=== PATIENT | female | born 1985 | race Caucasian/White ===

== ENCOUNTER 2025-05-21 23:17 | Emergency (ER) | payer BC ==
[~2025-05-21] VITALS: Ht 157.5 cm; Wt 59.0 kg
[2025-05-21 23:20] VITALS: BP 102/55
[2025-05-22] MEDS ORDERED: VALA100026 PO (00:12)
[2025-05-22] MEDS ORDERED: HYDR-4209 PO (00:12)
[2025-05-22] MEDS ORDERED: GABAPENTIN 300 MG CAPSULE ONE (00:12)
[2025-05-22] MEDS ORDERED: GABA300C PO (00:12)
[2025-05-22] MEDS ORDERED: IBUPROFEN 600 MG TABLET ONE (00:13)
[2025-05-22] MEDS: IBUPROFEN 600 MG TABLET PO ONE (00:16)
[2025-05-22] MEDS: GABAPENTIN 300 MG CAPSULE PO ONE (00:16)
[2025-05-22] MEDS: HYDROCODONE/APAP 5-325MG TABLET PO ONE (00:17)
[2025-05-22 00:39] VITALS: BP 110/62; TEMP 98; O2SAT 99
== END 2025-05-22 00:39 | disposition home or self-care (01) ==
LOC: ER 23:29
DX: B02.9 Zoster without complications (principal); M54.6 Pain in thoracic spine; Z79.624 Long term (current) use of inhibitors of nucleotide synthesis
CPT/HCPCS: A4606; A4663